=== PATIENT | female | born 1965 | race Caucasian/White ===

== ENCOUNTER 2018-02-03 22:43 | Emergency (ER) | payer BC ==
[2018-02-03] MEDS ORDERED: Ondansetron ODT 4 MG TAB ONE (23:17)
== END 2018-02-04 | disposition home or self-care (01) ==
LOC: SCSER 22:43
DX: R11.2 Nausea with vomiting, unspecified (principal); R19.7 Diarrhea, unspecified; E11.9 Type 2 diabetes mellitus without complications; E78.5 Hyperlipidemia, unspecified; I10 Essential (primary) hypertension; J44.9 Chronic obstructive pulmonary disease, unspecified; F32.9 Major depressive disorder, single episode, unspecified; F17.210 Nicotine dependence, cigarettes, uncomplicated; Z79.899 Other long term (current) drug therapy; Z71.6 Tobacco abuse counseling; Z79.82 Long term (current) use of aspirin; Z79.84 Long term (current) use of oral hypoglycemic drugs
CPT/HCPCS: 99406; Q0162

== ENCOUNTER 2018-09-01 15:53 | Emergency (ER) | payer BC | END 2018-09-01 16:28 | disposition home or self-care (01) | LOC: SCSER 15:53 | DX: J01.90 Acute sinusitis, unspecified (principal); E11.9 Type 2 diabetes mellitus without complications; E78.5 Hyperlipidemia, unspecified; I10 Essential (primary) hypertension; J44.9 Chronic obstructive pulmonary disease, unspecified; F32.9 Major depressive disorder, single episode, unspecified; F17.210 Nicotine dependence, cigarettes, uncomplicated; Z79.82 Long term (current) use of aspirin; Z79.899 Other long term (current) drug therapy; Z71.6 Tobacco abuse counseling | CPT/HCPCS: 99406 ==

== ENCOUNTER 2020-06-26 07:35 | Outpatient (CLI) | payer BC, OTHER ==
[2020-06-26 11:40] LABS: INR-International Normal Ratio 0.9; Prothrombin Time 12.8 sec (12.0-14.7)
[2020-06-26 12:09] LABS: Calcium 10.7 mg/dL (7.8-10.44); Chloride 99 mmol/L (98-107); Potassium 4.1 mmol/L (3.5-5.1); Sodium 135 mmol/L (136-145)
[2020-06-26 12:10] LABS: Glucose 182 mg/dL (70-105)
[2020-06-26 12:11] LABS: Anion Gap 17 mmol/L (10-20); Carbon Dioxide 23 mmol/L (22-29)
[2020-06-26 12:13] LABS: Calc. Creatinine Clearance 0 mL/min (70-130); Estimated GFR-MDRD 52
[2020-06-26 12:14] LABS: BUN (Urea Nitrogen) 22 mg/dL (9.8-20.1)
[2020-06-26 12:23] LABS: Band 1 % (5-11); Eosinophils 3 % (0-10); Hemoglobin 15.9 g/dL (12.0-16.0); Lymphocytes 55 % (21-51); MDiff Complete? YES; Mean Corpuscular HGB CONC 34.5 g/dL (32.0-36.0); Mean Corpuscular Hemoglobin 32.4 pg (27.0-31.0); Mean Platelet Volume 7.4 fL (7.4-10.4); Monocytes 3 % (0-10); Neutrophil 34 % (42-75); Platelet Count 277 thou/uL (130-400); RBC Morphology Normal; Reactive Lymphocytes 3 % (0-10); Red Blood Cell (RBC) Count 4.92 mill/uL (4.20-5.40); White Blood Cell (WBC) Count 9.5 thou/uL (4.8-10.8)
[2020-06-26 16:35] LABS: SARS-CoV-2 MS2 Positive; SARS-CoV-2 N Gene Negative; SARS-CoV-2 S Gene Negative; SARS-CoV-2 by NAA Not Detected (NotDetected); SARS-CoV-2 orf1ab Negative
== END 2020-06-26 07:36 | disposition home or self-care (01) ==
LOC: LABBT 07:35
PROVIDERS: ATTEND Orthopaedic Surgery
DX: Z01.818 Encounter for other preprocedural examination (principal); M75.112 Incomplete rotator cuff tear or rupture of left shoulder, not specified as traumatic; S43.402A Unspecified sprain of left shoulder joint, initial encounter; Z20.828 Contact with and (suspected) exposure to other viral communicable diseases
CPT/HCPCS: 80048; 85025; 85610; 87635; 93005; 93010; U0003

== ENCOUNTER 2020-06-29 07:18 | Day surgery (SDC) | payer BC ==
[2020-06-28 12:08] VITALS: BMI 37.6
[2020-06-29] MEDS ORDERED: Midazolam HCl 2 mg/2 ml Vial ONE (08:13)
[2020-06-29] MEDS ORDERED: Fentanyl 100 MCG/2 ML VIAL ONE ×2 (08:13→08:22)
[2020-06-29] MEDS ORDERED: Ropivacaine 0.2% 550 ML 550 ML NERVE BLCK SCH (08:45)
[2020-06-29] MEDS ORDERED: Ketorolac Tromethamine 30 MG/ML VIAL IVP PRN (08:45)
[2020-06-29] MEDS ORDERED: Ondansetron PF 4 MG/2 ML Vial IVP PRN (08:45)
[2020-06-29] MEDS ORDERED: Zolpidem Tartrate 5 MG TAB PO PRN (08:45)
[2020-06-29] MEDS ORDERED: traMADol HCl 50 MG TAB PO PRN ×2 (08:45)
[2020-06-29] MEDS ORDERED: HYDROcodone/Acetaminophen 5/325 mg Tablet PO PRN ×2 (08:45)
[2020-06-29] MEDS ORDERED: Promethazine HCl 25 MG/ML VIAL IM PRN (08:45)
[2020-06-29] MEDS ORDERED: Bupivacaine/Epinephrine 0.25% 30 ML VIAL ONE (09:10)
[2020-06-29] MEDS ORDERED: PHENYLEPHRINE-NS 100 MCG/ML 10 ML SYRINGE ONE ×2 (09:58→10:56)
[2020-06-29] MEDS ORDERED: SUGAMMADEX SODIUM 200 MG/2 ML VIAL ONE (10:35)
[2020-06-29] MEDS ORDERED: PROPOFOL 200 MG/20 ML VIAL ONE (10:56)
[2020-06-29] MEDS ORDERED: Ondansetron PF 4 MG/2 ML Vial ONE (10:56)
[2020-06-29] MEDS ORDERED: diphenhydrAMINE 50 MG/ML VIAL ONE (10:56)
[2020-06-29] MEDS ORDERED: Lidocaine 1% PF 5 ML VIAL ONE (10:56)
[2020-06-29] MEDS ORDERED: Rocuronium Bromide 10 MG/ML (10ML VIAL) ONE (10:56)
[2020-06-29] MEDS ORDERED: Bupivacaine HCl 0.5%/Epinephrine 1:200,000/PF 30 ml Vial ONE (10:57)
--- NOTE | 2020-06-30 11:10 | OP ---
DATE OF PROCEDURE: 06/29/2020 PREOPERATIVE DIAGNOSES: 1. Left full-thickness rotator cuff tear. 2. Biceps tendinopathy. POSTOPERATIVE DIAGNOSES: 1. Left full-thickness supraspinatus leading edge infraspinatus rotator cuff tear. 2. Biceps tendinopathy, greater than 30%, with superior labral degenerative tearing. 3. Leading edge subscapularis tear. PROCEDURES PERFORMED: 1. Left rotator cuff repair, double row transosseous equivalent. 2. Biceps tenodesis. HAM FACER: None. ANESTHESIOLOGIST: Luc Nuñez MD ANESTHESIA: The patient received general intubation with interscalene block. ESTIMATED BLOOD LOSS: 30 mL. TOURNIQUET TIME: None. IMPLANTS: Two 5.5 Arthrex corkscrew and three 4.75 SwiveLock. ANTIBIOTICS: Ancef 2 g. COMPLICATIONS: None. HISTORY: Ms. Flores is a 54-year-old female who presents with left shoulder pain and pain with overhead activities. She is a mail order clerk. The patient is right-hand dominant. I discussed with her that she had MRI evidence of a rotator cuff tear. I discussed with her the risks and benefits of smoking cessation as well as control of her diabetes to help improve her outcome. I discussed with her the risks and benefits of the surgery to include pain, scar, bleeding, infection, damage to vital structures, decreased range of motion, continued pain despite surgical intervention, need for further surgeries, failure of repair, biceps Oscar deformity, and loss of life or limb. The patient understood the risks and benefits and elected to proceed. DESCRIPTION OF PROCEDURE: Time-out was performed designating the patient's left upper extremity as the operative site based on site, consents, and marking. After time-out, the patient's subacromial space was injected with 15 mL of Marcaine. I then and visualized intra-articularly. There was a pendulous labrum that was adhered. The biceps had about 30% tearing throughout its course and a leading edge partial subscapularis tear. Therefore, I performed a tenotomy to tenotomize the biceps. I debrided a little bit of subscapularis tear. I debrided off some of the pendulous labrum. I saw the rotator cuff tear intra-articularly, looked for any loose bodies, looked at the glenoid and humerus for the most part intact. I then cleaned my intra-articular scope and moved it subacromially. I placed a lateral spinal needle to visualize my lateral portal and made a stab incision through this. I curetted, started with a shaver and cautery to expose the tear. There was a large tear of the supraspinatus and at the leading edge of the infraspinatus. I debrided the bone to create a bleeding footprint. After completion of this, I placed a cannula through my previously made anterior portal into the subacromial space. I debrided off the bone, placed an anterior anchor, passed my 4 stitches. The passing of the second somehow unloaded the stitch with this limb that was passed. I used that as a luggage handle stitch as I repassed and then placed a second anchor posteriorly, passed it through 4 stitches. I then tied all 3 knots that I had in horizontal mattress fashion, placed 5 limbs with the whole luggage handle that I had, moving in anteriorly and placing anchor anteriorly. I saw a little bit of a dog-ear anteriorly, which I placed another through. With a 4.75 SwiveLock, I cut those stitches. I removed the anchor sutures, placed another luggage handle anteriorly and used that to compress the cuff down anterior and placed the remaining 3 and put that posterior for my double row transosseous equivalent. I cut those sutures, removed the eyelet sutures, and removed the biceps. I placed a stab hole incision obliquely right near the biceps groove in between my 2 anchors through anterior and lateral portals. I made a stab incision, bluntly dissected down, placed one of my cannulas into position, and found the biceps. It had actually adhered well. I could not really remove it from its position. Given this, it is not likely that it was stuck in the shoulder. I did not desire to remove it, so therefore I placed 2 FiberWire luggage handle stitches through the biceps, placed a 4.75 SwiveLock and anchored it down into the groove. I cut the stitches, removed the remaining sutures, took final pictures, washed and closed. The patient will be discharged to home. Elbow, wrist, and hand motion. No active level of flexion. She will follow up with me in 2 weeks. Discharged home with pain medications. The patient's outlook is guarded. Job ID: [id number]
== END 2020-06-29 13:57 | disposition home or self-care (01) ==
LOC: SDC 07:18
PROVIDERS: ATTEND Orthopaedic Surgery
PROC: 0LS44ZZ Reposition Left Upper Arm Tendon, Percutaneous Endoscopic Approach (ICD-10-PCS; principal; 2020-06-29)
PROC: 3E0T3BZ Introduction of Anesthetic Agent into Peripheral Nerves and Plexi, Percutaneous Approach (ICD-10-PCS; principal; 2020-06-29)
PROC: 0LQ24ZZ Repair Left Shoulder Tendon, Percutaneous Endoscopic Approach (ICD-10-PCS; principal; 2020-06-29)
PROC: 0RNK4ZZ Release Left Shoulder Joint, Percutaneous Endoscopic Approach (ICD-10-PCS; principal; 2020-06-29)
DX: S46.012A Strain of muscle(s) and tendon(s) of the rotator cuff of left shoulder, initial encounter (principal); M75.22 Bicipital tendinitis, left shoulder; S43.432A Superior glenoid labrum lesion of left shoulder, initial encounter; G89.18 Other acute postprocedural pain; I10 Essential (primary) hypertension; E11.21 Type 2 diabetes mellitus with diabetic nephropathy; E11.22 Type 2 diabetes mellitus with diabetic chronic kidney disease; E11.42 Type 2 diabetes mellitus with diabetic polyneuropathy; N18.30 Chronic kidney disease, stage 3 unspecified; E03.9 Hypothyroidism, unspecified; E78.5 Hyperlipidemia, unspecified; K21.9 Gastro-esophageal reflux disease without esophagitis; F41.9 Anxiety disorder, unspecified; F32.9 Major depressive disorder, single episode, unspecified; F17.210 Nicotine dependence, cigarettes, uncomplicated; J30.2 Other seasonal allergic rhinitis; Z79.4 Long term (current) use of insulin; Z79.899 Other long term (current) drug therapy; Z79.82 Long term (current) use of aspirin; Z91.14 Patient's other noncompliance with medication regimen
CPT/HCPCS: 36416; A4306; C1713; J0690; J1200; J2250; J2405; J2704; J2795; J3010

== ENCOUNTER 2021-05-10 15:36 | Emergency (ER) | payer BC ==
[2021-05-10 16:07] LABS: Actual Bicarbonate (HCO3v) 19 mEq/L (22-28); Analyzer IN Cardio ER; Base Excess -4.5 mEq/L (-2.0 to +3.0); Calcium, Ionized (venous) 1.06 mmol/L (1.16-1.32); Chloride (VBG) 92 mmol/L (98-106); Hemoglobin (Hb) 15.2 g/dL (11.7-16.0); Potassium (VBG) 4.28 mmol/L (3.70-5.30); Sodium 125.6 mmol/L (133-146); pH (venous) 7.39 (7.32-7.43)
[2021-05-10 16:15] LABS: #Basophils 0.2 thou/uL (0.0-0.2); #Eosinphils 0.2 thou/uL (0.0-0.7); #Lymphocytes 3.8 thou/uL (1.20-3.40); #Monocytes 0.7 thou/uL (0.11-0.59); #Neutrophils 4.2 thou/uL (1.40-6.50); %Basophils 1.8 % (0.0-1.0); %Eosinophils 2.6 % (0.0-10.0); %Lymphocytes 41.6 % (21.0-51.0); %Monocytes 7.3 % (0.0-10.0); %Neutrophils 46.7 % (42.0-75.0); Hemoglobin 15.5 g/dL (12.0-16.0); Mean Corpuscular HGB CONC 35.4 g/dL (32.0-36.0); Mean Corpuscular Hemoglobin 32.7 pg (27.0-31.0); Mean Corpuscular Volume 92.5 fL (78.0-98.0); Mean Platelet Volume 8.1 fL (7.4-10.4); Platelet Count 281 thou/uL (130-400); RBC Distribution Width 11.9 % (11.5-14.5); Red Blood Cell (RBC) Count 4.74 mill/uL (4.20-5.40); White Blood Cell (WBC) Count 9.1 thou/uL (4.8-10.8)
[2021-05-10 16:24] LABS: Magnesium 1.9 mg/dL (1.6-2.6)
[2021-05-10] MEDS ORDERED: Ondansetron PF 4 MG/2 ML Vial ONE (16:27)
[2021-05-10 16:30] LABS: ALT (SGPT) 21 U/L (8-55); AST (SGOT) 17 U/L (5-34); Albumin 3.9 g/dL (3.5-5.0); Alkaline Phosphatase 125 U/L (40-110); Anion Gap 18 mmol/L (10-20); BUN (Urea Nitrogen) 23 mg/dL (9.8-20.1); Bilirubin, Total 0.2 mg/dL (0.2-1.2); Calc. Creatinine Clearance 0 mL/min (70-130); Calcium 9.2 mg/dL (7.8-10.44); Carbon Dioxide 20 mmol/L (22-29); Chloride 90 mmol/L (98-107); Globulin 4.3 g/dL (2.4-3.5); Phosphorus 4.8 mg/dL (2.3-4.7); Potassium 4.4 mmol/L (3.5-5.1); Protein, Total 8.2 g/dL (6.0-8.3); Sodium 124 mmol/L (136-145)
[2021-05-10 16:44] LABS: Glucose 737 mg/dL (70-105)
[2021-05-10] MEDS ORDERED: Insulin Regular 300 UNITS/3 ML VIAL ONE (17:06)
[2021-05-10 18:24] LABS: Bacteria/HPF None Seen HPF (None Seen); Bilirubin Negative (Negative); Blood, Urine 1+ (Negative); Clarity Clear (Clear); Glucose, Urine (Dipstick) Greater than 1000 mg/dL (Negative); Ketone, Urine Negative (Negative); Leukocyte 250 Leu/uL (Negative); Nitrite Negative (Negative); Protein, Urine (Dipstick) Negative (Neg-Trace); RBC/HPF 0-3 HPF (0-3); Specific Gravity, Urine 1.029 (1.002-1.036); Squamous Epithelial 0-3 HPF (0-3); Urobilinogen Normal mg/dL (Less than 2)
[2021-05-10 19:42] LABS: Lactic Acid 2.1 mmol/L (0.5-2.2)
== END 2021-05-10 20:20 | disposition left against medical advice (07) ==
LOC: ERS 15:36
DX: E11.65 Type 2 diabetes mellitus with hyperglycemia (principal); N17.9 Acute kidney failure, unspecified; R74.02 Elevation of levels of lactic acid dehydrogenase [LDH]; E78.5 Hyperlipidemia, unspecified; E78.00 Pure hypercholesterolemia, unspecified; I10 Essential (primary) hypertension; J44.9 Chronic obstructive pulmonary disease, unspecified; F17.210 Nicotine dependence, cigarettes, uncomplicated
CPT/HCPCS: 36415; 36416; 71045; 80053; 80061; 81003; 81015; 82010; 82043; 82150; 82805; 83036; 83605; 83690; 83735; 84100; 84443; 84484; 85025; 93005; 96374; 96375; J1815; J2405

== ENCOUNTER 2021-12-04 13:33 | Outpatient (CLI) | payer BC | END 2021-12-04 13:34 | disposition home or self-care (01) | LOC: SCSMRI 13:33 | PROVIDERS: ATTEND Family Medicine | DX: R42 Dizziness and giddiness (principal); I67.82 Cerebral ischemia; J35.2 Hypertrophy of adenoids | CPT/HCPCS: 70553 ==